=== PATIENT | female | born 1980 | race Caucasian/White ===

== ENCOUNTER 2016-08-12 13:15 | Emergency (ER) | payer OTHER ==
--- NOTE | ~2016-08-12 | CR124 ---
[facility] A Service of [facility] RADIOLOGY TEXT RESULTS PATIENT: BEV BATEMAN LOCATION: [place] : 78 UNIT #: [id number] AGE: [address]: Rober Yin SEX: F ORDER DR: [id number] [facility] [address] [place], [place] [address] [id number] MR#: [id number] Acc #: [id number] NAME: BEV BATEMAN : 1980 SEX: F STUDY DATE/TIME: 08/12/2016 12:42 UNIT: CFTX ROOM: STUDY DESCRIPTION: CR Foot 2 Views Rt Attending Physician: Rober Yin Referring Physician: Self Referral-Refer Use Only Ordering Physician: Ed Doctor [id number] [facility] Primary Care Physician: [facility] MEDICAL IMAGING REPORT This report is preliminary unless electronic signature is present EXAM Right foot 2 views, 08/12/2016 12:42 hours HISTORY 35-year-old woman who suffered skin tear on third and fourth toes today. Patient stepped on a Lego and dropped a karaoke machine on foot today. COMPARISON None. FINDINGS AP, lateral and oblique views demonstrate no acute fracture, dislocation or foreign body. Benign vascular calcifications are noted in the soft tissues of the medial anterior lower leg. There are large spurs at the plantar surface of the calcaneus and the Achilles insertion. IMPRESSION No acute fracture or dislocation. No foreign body seen. Dictated by... Gali Smith M.D. THIS IS AN ELECTRONICALLY VERIFIED REPORT Gali Smith M.D. at 08/13/2016 9:25 AM Jessica TD: 08/12/2016 18:53 JOB #: [id number] MEDICAL IMAGING REPORT COPY
== END 2016-08-12 16:00 | disposition home or self-care (01) ==
LOC: CFTX 13:15
DX: S91.214A Laceration without foreign body of right lesser toe(s) with damage to nail, initial encounter (principal); Z23 Encounter for immunization; Z88.5 Allergy status to narcotic agent; W20.8XXA Other cause of strike by thrown, projected or falling object, initial encounter; Y92.009 Unspecified place in unspecified non-institutional (private) residence as the place of occurrence of the external cause
CPT/HCPCS: 11760; 73620; 90471; 90715; 99283